=== PATIENT | male | born 1950 | race Caucasian/White ===

== ENCOUNTER → 2020-01-23 | Outpatient (CLI) | payer MEDICARE, BC ==
[~2020-01-23] MED LIST: ALLO100T MT; ASPI-1160 MT; ATOR20TA MT; LISI-186 MT; TAMS-11 MT
== END | disposition home or self-care (01) ==
LOC: LAB 09:51
PROVIDERS: ATTEND Specialist
DX: Z01.818 Encounter for other preprocedural examination (principal); Z11.59 Encounter for screening for other viral diseases
CPT/HCPCS: C9803; U0003

== ENCOUNTER 2020-01-25 07:54 | Inpatient (IN) | payer MEDICARE, BC ==
[2020-01-25] VITALS (7 sets, daily range): BP systolic 101–129; BP diastolic 53–84
[~2020-01-25] VITALS: Ht 177.8 cm; Wt 83.5 kg
[~2020-01-25 07:54] MED LIST changes: -ALLO100T MT; +ALLO100T PO; -ASPI-1160 MT; +ASPI-1160 PO; -ATOR20TA MT; +ATOR20TA PO; -LISI-186 MT; +LISI-186 PO; -TAMS-11 MT; +TAMS-11 PO
[2020-01-25] MEDS ORDERED: LIDOCAINE HCL 1% 20ML VIAL (Pyxis) INJ ONE (08:21)
[2020-01-25] MEDS ORDERED: FENTANYL CITRATE/PF 50MCG/ML 2ML VIAL ONE (08:21)
[2020-01-25] MEDS ORDERED: IODIXANOL 320MG/ML 100 ML BOTTLE IV ONE ×2 (08:22→10:52)
[2020-01-25] MEDS ORDERED: MIDAZOLAM HCL 2 MG/2 ML VIAL ONE (08:22)
[2020-01-25] MEDS ORDERED: HEPARIN SODIUM 1,000 UNIT/1ML VIAL IV ONE (10:05)
[2020-01-25] MEDS ORDERED: ATROPINE SULFATE 0.1MG/ML 10ML DISP.SYRIN ONE (10:33)
[2020-01-25] MEDS ORDERED: ACETAMINOPHEN 325MG TABLET PO PRN (11:15)
[2020-01-25] MEDS ORDERED: ATROPINE SULFATE 1MG/10ML SYR IV PRN (11:15)
[2020-01-25] MEDS ORDERED: ONDANSETRON HCL 4MG/2ML INJ IV PRN (11:15)
[2020-01-25] MEDS ORDERED: ASPIRIN 325MG EC TABLET PO ONE (11:16)
[2020-01-25] MEDS ORDERED: CLOPIDOGREL 75MG TABLET ONE (11:16)
[2020-01-25] MEDS: TAMSULOSIN HCL 0.4MG SR CAPSULE PO SCH (16:30)
[2020-01-25] MEDS: LISINOPRIL 5MG TABLET PO SCH (20:00)
[2020-01-25] MEDS ORDERED: ATORVASTATIN CALCIUM 20MG TABLET PO SCH (21:00)
[2020-01-26] VITALS (7 sets, daily range): BP systolic 108–138; BP diastolic 56–75
[2020-01-26 06:24] LABS: BASOPHILS % 0.7 % (0.0-2.0); EOSINOPHILS % 4.6 % (0.0-5.0); HEMATOCRIT. 40.9 % (42.0-52.0); HEMOGLOBIN. 13.7 g/dL (14.0-18.0); LYMPHOCYTES % 26.6 % (20.0-50.0); MEAN CORPUSCULAR HEMOGLOBIN 30.3 pg (28.0-32.0); MEAN CORPUSCULAR VOLUME 90.7 fL (80.0-94.0); MEAN PLATELET VOLUME 8.4 fl (7.4-10.4); NEUTROPHILS % 61.1 % (40.0-76.0); PLATELET 154 x1000/uL (130-400); RED BLOOD CELL COUNT 4.52 mill/uL (4.7-6.1)
[2020-01-26 06:35] LABS: CHLORIDE 108 mEq/L (98-107)
[2020-01-26 06:44] LABS: LDL CHOLESTEROL 78 mg/dL (5-100)
[2020-01-26 06:46] LABS: HDL CHOLESTEROL 46 mg/dL (40-59)
[2020-01-26] MEDS: LISINOPRIL 5MG TABLET PO SCH (08:20)
[2020-01-26] MEDS: TAMSULOSIN HCL 0.4MG SR CAPSULE PO SCH (08:20)
[2020-01-26] MEDS ORDERED: CLOPIDOGREL 75MG TABLET PO SCH (09:00)
[2020-01-26] MEDS ORDERED: ASPIRIN 325MG TABLET PO SCH (09:00)
[2020-01-26] MEDS ORDERED: CLOP75TA4 PO (11:10)
== END 2020-01-26 11:24 | disposition home or self-care (01) | DRG 247 ==
LOC: CCL 07:54 → 3WST 07:55
PROVIDERS: ADMIT Specialist; ATTEND Specialist
PROC: 027034Z Dilation of Coronary Artery, One Artery with Drug-eluting Intraluminal Device, Percutaneous Approach (ICD-10-PCS; principal; 2020-01-25)
PROC: B2111ZZ Fluoroscopy of Multiple Coronary Arteries using Low Osmolar Contrast (ICD-10-PCS; 2020-01-25)
PROC: 4A023N7 Measurement of Cardiac Sampling and Pressure, Left Heart, Percutaneous Approach (ICD-10-PCS; 2020-01-25)
PROC: B2151ZZ Fluoroscopy of Left Heart using Low Osmolar Contrast (ICD-10-PCS; 2020-01-25)
DX: T82.855A Stenosis of coronary artery stent, initial encounter (principal); I47.1 Supraventricular tachycardia; I25.10 Atherosclerotic heart disease of native coronary artery without angina pectoris; E78.5 Hyperlipidemia, unspecified; F41.0 Panic disorder [episodic paroxysmal anxiety]; I10 Essential (primary) hypertension; I25.82 Chronic total occlusion of coronary artery; I49.5 Sick sinus syndrome; M10.9 Gout, unspecified; Z20.828 Contact with and (suspected) exposure to other viral communicable diseases; N40.0 Benign prostatic hyperplasia without lower urinary tract symptoms; E66.9 Obesity, unspecified; Y83.1 Surgical operation with implant of artificial internal device as the cause of abnormal reaction of the patient, or of later complication, without mention of misadventure at the time of the procedure; Z98.61 Coronary angioplasty status; Z68.26 Body mass index [BMI] 26.0-26.9, adult; Y92.89 Other specified places as the place of occurrence of the external cause
CPT/HCPCS: 36415; 80048; 80053; 80061; 83036; 83735; 85025; 85347; 92928; 93005; 93458; C1769; C1874; C1887; C1893; J0461; J1644; J2250; J3010; J3490; Q9967; C1725; C9803-CS; U0003-CS

== ENCOUNTER → 2020-02-12 | Outpatient (CLI) | payer MEDICARE, BC ==
[~2020-02-12] MED LIST changes: +CLOP75TA4 PO
== END | disposition home or self-care (01) ==
LOC: LAB 08:19
PROVIDERS: ATTEND Specialist
DX: R05 Cough (principal); Z20.828 Contact with and (suspected) exposure to other viral communicable diseases
CPT/HCPCS: 87635